=== PATIENT | male | born 1955 | race Caucasian/White ===

== ENCOUNTER 2021-02-15 08:01 | Day surgery (SDC) | payer MEDICARE, MEDICAID ==
[2021-02-08 15:24] LABS: BASOPHILS % (AUTO) 0.5 % (0-1); EOSINOPHILS # (AUTO) 0.2 X10'3 (0-0.9); EOSINOPHILS % (AUTO) 2.8 % (0-6); LYMPHOCYTES # (AUTO) 2.8 X10'3 (1.1-4.8); LYMPHOCYTES % (AUTO) 34.4 % (21-51); MEAN CORPUSCULAR HEMOGLOBIN 28.3 PG (27.0-31.0); MEAN CORPUSCULAR HGB CONC 32.6 g/dL (33.0-36.5); MEAN CORPUSCULAR VOLUME 86.9 FL (78-98); MEAN PLATELET VOLUME 7.5 FL (7.4-10.4); MONOCYTES # (AUTO) 0.6 X10'3 (0-0.9); MONOCYTES % (AUTO) 7.7 % (2-12); NEUTROPHILS # (AUTO) 4.5 X10'3 (1.8-7.7); NEUTROPHILS % (AUTO) 54.6 % (42-75); PRE OP HEMATOCRIT 47.2 % (42.0-52.0); PRE OP HEMOGLOBIN 15.4 g/dL (14.0-17.9); PRE OP PLATELET COUNT 263 X10'3 (140-440); RED BLOOD COUNT 5.43 X10'6 (4.70-6.10); RED CELL DISTRIBUTION WIDTH 15.1 % (11.5-14.5)
[2021-02-08 15:33] LABS: ALBUMIN 3.7 G/DL (3.4-5.0); ALBUMIN/GLOBULIN RATIO 0.8 (1.1-1.5); ALKALINE PHOSPHATASE 124 IU/L (46-116); BLOOD UREA NITROGEN 15 MG/DL (7-18); CALCIUM 8.3 MG/DL (8.5-10.1); CHLORIDE 102 MMOL/L (99-107); CREATININE 1.15 MG/DL (0.60-1.10); PRE OP ALT 26 U/L (30-65); PRE OP ANION GAP 7 (8-16); PRE OP AST 18 U/L (10-37); PRE OP BILIRUB, TOTAL 0.5 MG/DL (0.0-1.0); PRE OP GLUCOSE 188 MG/DL (70-104); PRE OP POTASSIUM 4.7 MMOL/L (3.4-5.1); PRE OP SODIUM 138 MMOL/L (135-145); TOTAL CARBON DIOXIDE 29.3 MMOL/L (24-32); TOTAL PROTEIN 8.2 G/DL (6.4-8.2); eGFR 64 ML/MIN
[2021-02-15] VITALS (22 sets, daily range): BP systolic 121–178; BP diastolic 58–115
[~2021-02-15] VITALS: Ht 172.7 cm; Wt 101.9 kg
[~2021-02-15 08:01] MED LIST: ALBU17AE26 INH; BUPIVAcaine/PF 2.5 mg/ml (0.25%) 30ml vial ONE; CITA40TA17 PO; GABA-530 PO; LIDOcaine 1% 30ml preserv. free vial ONE; LISI20TA28 PO; METF-950 PO; PANT40TA54 PO; SEMA0.25 INJ; albuterol 2.5 MG/3 ML nebule NEB ONE; cefazolin/dext.iso 2gm/100ml 100 ML IV ONE; famotidine 20mg tablet PO ONE; ringers solution, lacted 1,000 ML IV SCH
[2021-02-15] MEDS ORDERED: BUPIVACAINE liposomal/PF 13.3 MG/ML vial IM ONE (10:00)
[2021-02-15] MEDS ORDERED: BUPIVAcaine/PF 2.5mg/ml (0.25%) 10ml vial ONE (10:00)
[2021-02-15] MEDS ORDERED: neostigmine methylsulfate 1 MG/ML 10ml vial ONE (10:03)
[2021-02-15] MEDS ORDERED: dexamethasone sod phosphate 10mg/ml inj ONE (10:03)
[2021-02-15] MEDS ORDERED: sevoflurane 250ml liquid IH ONE (10:03)
[2021-02-15] MEDS ORDERED: midazolam 1 mg/ML 2ml injection ONE (10:08)
[2021-02-15] MEDS ORDERED: fentaNYL/PF 50MCG/1 ML 2ML syringe ONE (10:08)
[2021-02-15] MEDS ORDERED: rocuronium 10mg/ml inj IV ONE (10:14)
[2021-02-15] MEDS ORDERED: ondansetron/PF 4mg/2ml inj ONE (10:14)
[2021-02-15] MEDS ORDERED: glycopyrrolate 0.2mg/ml inj ONE (10:14)
[2021-02-15] MEDS ORDERED: LIDOcaine 2% (20mg/ml) 5ml vial ONE (10:14)
[2021-02-15] MEDS ORDERED: propofol inj 20 ML IV ONE (10:14)
[2021-02-15] MEDS ORDERED: ondansetron/PF 4mg/2ml inj IV PRN (11:05)
[2021-02-15] MEDS ORDERED: HYDROmorphone/PF 0.2 MG/ML SYRINGE IV PRN (11:05)
[2021-02-15] MEDS ORDERED: fentaNYL/PF 50MCG/1 ML 2ML syringe IV PRN (11:05)
[2021-02-15] MEDS ORDERED: morphine 2 MG/ML inj. syringe IV PRN (11:05)
[2021-02-15] MEDS ORDERED: hydrALAZINE 20mg/ml inj. IV PRN (11:05)
[2021-02-15] MEDS ORDERED: ringers solution, lacted 1,000 ML IV SCH (11:05)
[2021-02-15] MEDS ORDERED: labetalol 20mg/4ml (5mg/ml) syringe IV PRN (11:05)
--- NOTE | 2021-02-15 11:39 | NUR ---
Received from OR via [facility] , accompanied by Anesthesiologist DR WHEATLEY and report given by Anesthesiologist. PT DROWSY, DENIES PAIN, ABDOMINAL BINDER ON AND IN PLACE, 2 LAP SITES W/BANDJESS CDI, 1 [facility] DRSG CDI. Addendum: 02/15/21 at 1242 by Adrienne Boyd RN Amended: Links added.
[2021-02-15] MEDS ORDERED: oxyCODONE/APAP 5-325mg tablet PO PRN ×2 (11:40)
[2021-02-15] MEDS: morphine 4 MG/ML inj SYRINge IV PRN ×2 (11:51→12:03)
[2021-02-15] MEDS ORDERED: midazolam 1 mg/ML 2ml injection IV ONE (12:10)
[2021-02-15] MEDS ORDERED: albuterol 2.5 MG/3 ML nebule NEB ONE (12:10)
--- NOTE | 2021-02-15 15:39 | NUR ---
PT BLADDER SCANNED FOR 311 ML, PT UP W/WALKER TO BATHROOM FOR VOID, POST VOID RESIDUAL 47 ML, PT VOIDED APPROX 265ML. D/C INSTRUCTIONS GIVEN AND GONE OVER W/PT WHO VERBALIZED UNDERSTANDING. PT DC'D TO HOME VIA W/C TO PRIVATE VEHICLE W/O INCIDENT. Addendum: 02/15/21 at 1615 by Adrienne Boyd RN Amended: Links added.
== END 2021-02-15 15:39 | disposition home or self-care (01) ==
LOC: PAS 08:01
PROVIDERS: ATTEND Surgery
DX: K42.0 Umbilical hernia with obstruction, without gangrene (principal); Z20.822 Contact with and (suspected) exposure to COVID-19; I10 Essential (primary) hypertension; E11.40 Type 2 diabetes mellitus with diabetic neuropathy, unspecified; I25.10 Atherosclerotic heart disease of native coronary artery without angina pectoris; F17.210 Nicotine dependence, cigarettes, uncomplicated; J45.909 Unspecified asthma, uncomplicated; M19.90 Unspecified osteoarthritis, unspecified site; K21.9 Gastro-esophageal reflux disease without esophagitis; F32.9 Major depressive disorder, single episode, unspecified; F41.9 Anxiety disorder, unspecified; E66.9 Obesity, unspecified; Z68.35 Body mass index [BMI] 35.0-35.9, adult; Z98.890 Other specified postprocedural states; Z79.899 Other long term (current) drug therapy; Z79.84 Long term (current) use of oral hypoglycemic drugs; Z83.3 Family history of diabetes mellitus; Z82.3 Family history of stroke; Z80.9 Family history of malignant neoplasm, unspecified; Z82.49 Family history of ischemic heart disease and other diseases of the circulatory system
CPT/HCPCS: 36415; 49653; 64488; 71046; 80053; 82948; 85025; 93005; 94640; C1713; C1781; C9290; J1100; J2001; J2250; J2270; J2405; J2704; J2710; J3010; J3490; U0003; A4215; A4618; J7120